=== PATIENT | female | born 1970 | race Caucasian/White ===

== ENCOUNTER 2016-07-12 19:24 | Emergency (ER) | payer BC, OTHER ==
[~2016-07-12] VITALS: Ht 162.6 cm; Wt 101.6 kg
[~2016-07-12 19:24] MED LIST: Z.0.NO CURRENT MEDS
[2016-07-12 19:33] VITALS: BP 128/85; PULSE 84; RESP 18; TEMP 99.1; O2SAT 98
[2016-07-12] MEDS ORDERED: CLIN1CAP6 PO (20:07)
--- NOTE | 2016-07-12 20:16 | PD ---
HPI Chief Complaint: Oral / Dental Pain or Problem Time Seen by Provider: 19:50 Travel History International Travel<30 days: No Contact w/Intl Traveler<30days: No Traveled to known affect area: No History of Present Illness HPI 45-year-old female presents to the emergency room for evaluation of left lower dental pain and swelling. Patient's D she has had dental pain for a long time but has a fear of going to the dentist and has not been able to bring herself to do it. States she woke up this morning with acute worsening of pain and facial swelling. States swelling is causing the left side of her face to feel numb. She has been taking Aleve daily without significant relief in symptoms. She denies fever, chills, nausea, and vomiting. No difficulty eating or breathing. Denies chronic medical conditions or daily medications. PFSH Past Medical History Cancer: No Diabetes: No Diminished Hearing: No Hepatitis: No Hiatal Hernia: No Medical other: Yes (hx of anemia) Thyroid Disease: No ?: Not : 3 Para: 3 Ovarian Cysts: Yes Tubal Ligation: Yes Past Surgical History Abdominal Surgery: Yes (hernia repair tubaligation laparoscopy) Gynecologic Surgery: Yes (OVARY AND OVARIAN CYSTS REMOVED) Other Surgery: Yes (HERNIA REPAIR UMBILICAL) Social History Alcohol Use: No Tobacco Use: No Substance Use: No Allergies-Medications (Allergen,Severity, Reaction): Coded Allergies: Penicillin (Verified Allergy, Severe, HIVES, 07/12/16) Reported Meds & Prescriptions Reported Meds & Active Scripts Active Clindamycin (Clindamycin HCl) 300 Mg Cap 300 Mg PO Q8HR 10 Days Review of Systems Except as stated in HPI: all other systems reviewed are Neg Physical Exam Narrative GENERAL: Well-nourished, well-developed female in no acute distress. Afebrile. Ambulatory. SKIN: Warm and dry. HEAD: Normocephalic. EYES: No scleral icterus. No injection or drainage. DENTAL: Mild decay throughout. Tenderness to palpation to tooth #19 which has an intact filling and new cavity. No surrounding erythema. No submental, some mandibular, or buccal induration. Mild left-sided facial swelling. No loose or chipped teeth. No malocclusion. NECK: Supple, trachea midline. No JVD or lymphadenopathy. CARDIOVASCULAR: Regular rate and rhythm without murmurs, gallops, or rubs. RESPIRATORY: Breath sounds equal bilaterally. No accessory muscle use. No crackles, rales, wheezes, or rhonchi. Data Data Last Documented VS Vital Signs Date Time Temp Pulse Resp B/P Pulse Ox O2 Delivery O2 Flow Rate FiO2 07/12/16 19:33 99.1 84 18 128/85 98 MDM Medical Decision Making Medical Screen Exam Complete: Yes Emergency Medical Condition: Yes Medical Record Reviewed: Yes Differential Diagnosis Dentalgia versus dental abscess versus gingivitis Narrative Course 45-year-old female presents to the emergency room for evaluation of left lower dental pain and swelling for the past day. Patient has had problems with the left lower dental pain for a long period of time but woke up with the swelling acutely this morning. She has been taking NSAIDs without relief in symptoms. She has been unable to see a dentist secondary to anxiety. Physical exam reveals mild to moderate decay throughout. Tenderness to palpation at tooth # 19 with mild associated facial swelling. No evidence of Rd's. Likely early dental abscess. Patient will be treated with clindamycin and told to follow up with her dentist or return for worsening symptoms. She understands and agrees to plan. Diagnosis Primary Impression: Dental abscess Referrals: Dentist Patient Instructions: Dental Abscess (ED), General Instructions Additional Instructions: Rest and drink plenty of fluids. Ibuprofen with food as directed, as needed for pain. Clindamycin as directed, until gone. Follow-up with a dentist. Return to the emergency room for worsening symptoms. Med/Other Pt SpecificInfo: Prescription(s) given Scripts Clindamycin 300 Mg [id number] Mg PO Q8HR 10 Days Ref 0 Prov:Indira Way MD 07/12/16 Disposition: 01 DISCHARGE HOME Condition: Stable Cheri Gonzalez Jul 12, 2016 20:16
== END 2016-07-12 20:22 | disposition home or self-care (01) ==
LOC: PHEFT 19:24
DX: K04.7 Periapical abscess without sinus (principal)
CPT/HCPCS: 99282

== ENCOUNTER 2017-10-21 07:27 | Emergency (ER) | payer OTHER ==
[~2017-10-21] VITALS: Ht 162.6 cm; Wt 106.5 kg
[~2017-10-21 07:27] MED LIST changes: +CLIN300C5 PO; -Z.0.NO CURRENT MEDS
[2017-10-21 07:36] VITALS: BP 143/77; PULSE 104; RESP 16; TEMP 97.8; O2SAT 99
[2017-10-21] MEDS ORDERED: GERD MED (07:45)
[2017-10-21] MEDS ORDERED: IBUP1TAB7 PO (07:45)
--- NOTE | 2017-10-21 07:58 | PD ---
HPI Chief Complaint: Musculoskeletal Complaint Time Seen by Provider: 07:47 Travel History International Travel<30 days: No Contact w/Intl Traveler<30days: No Traveled to known affect area: No History of Present Illness HPI This 47-year-old female says she had a sudden onset of pain behind her right lower leg around 2:00 this morning. The pain is quite severe. She is able to walk but the pain is aggravated by walking and by certain movements. There is been no fever or chills. There is no history of trauma. She has no history of blood clot. She has a history of arthritis in her knees and for which he takes Aleve or ibuprofen. Has not been any fever or chills PFSH Past Medical History Cancer: No Cardiovascular Problems: No Diabetes: No Diminished Hearing: No Hepatitis: No Hiatal Hernia: No Hypertension: No Medical other: Yes (hx of anemia) Respiratory: No Thyroid Disease: No Tetanus Vaccination: Unknown ?: Not LMP: 2 weeks ago : 3 Para: 3 Ovarian Cysts: Yes Tubal Ligation: Yes Past Surgical History Abdominal Surgery: Yes (hernia repair tubaligation laparoscopy) Gynecologic Surgery: Yes (OVARY AND OVARIAN CYSTS REMOVED) Other Surgery: Yes (HERNIA REPAIR UMBILICAL) Social History Alcohol Use: No Tobacco Use: No Substance Use: No Allergies-Medications (Allergen,Severity, Reaction): Coded Allergies: penicillin G (Unverified Allergy, Severe, HIVES, 10/21/17) Reported Meds & Prescriptions Reported Meds & Active Scripts Active Reported [Gerd Med] Ibuprofen 800 Mg Tab 800 Mg PO BID PRN Review of Systems Except as stated in HPI: all other systems reviewed are Neg General / Constitutional: No: Fever Eyes: No: Diploplia HENT: No: Headaches, Vertigo Cardiovascular: No: Chest Pain or Discomfort, Palpitations Respiratory: No: Cough, Shortness of Breath Gastrointestinal: No: Nausea, Vomiting Genitourinary: No: Urgency, Frequency Musculoskeletal: Positive: Arthralgias, Pain Skin: No Rash, No Itching Neurologic: No: Weakness, Dizziness Endocrine: No: Heat Intolerance, Cold Intolerance Hematologic/Lymphatic: No: Easy Bruising Physical Exam Narrative GENERAL: Well-developed female SKIN: Focused skin assessment warm/dry. HEAD: Atraumatic. Normocephalic. EYES: Pupils equal and round. No scleral icterus. No injection or drainage. ENT: No nasal bleeding or discharge. Mucous membranes pink and moist. NECK: Trachea midline. No JVD. . MUSCULOSKELETAL: No obvious deformities. No clubbing. No cyanosis. No edema. She has varicose veins on the right lower leg. The right calf is tender to palpation. It is not warm. There is no erythema. NEUROLOGICAL: Awake and alert. No obvious cranial nerve deficits. Motor grossly within normal limits. Normal speech. PSYCHIATRIC: Appropriate mood and affect; insight and judgment normal. Data Data Last Documented VS Vital Signs Date Time Temp Pulse Resp B/P (MAP) Pulse Ox O2 Delivery O2 Flow Rate FiO2 10/21/17 07:42 16 10/21/17 07:36 97.8 104 143/77 (99) 99 Orders Orders Complete Blood Count With Diff (10/21/17 07:56) Basic Metabolic Panel (Bmp) (10/21/17 07:56) Prothrombin Time / Inr (Pt) (10/21/17 07:56) Act Partial Throm Time (Ptt) (10/21/17 07:56) Us Leg Venous Doppler (10/21/17 07:56) Acetaminophen (Tylenol) (10/21/17 08:15) Labs Laboratory Tests Test 10/21/17 08:00 White Blood Count 12.2 TH/MM3 Red Blood Count 5.08 MIL/MM3 Hemoglobin 10.8 GM/DL Hematocrit 34.6 % Mean Corpuscular Volume 68.0 FL Mean Corpuscular Hemoglobin 21.2 PG Mean Corpuscular Hemoglobin Concent 31.2 % Red Cell Distribution Width 16.5 % Platelet Count 213 TH/MM3 Mean Platelet Volume 8.6 FL CBC Comment AUTO DIFF Differential Total Cells Counted 100 Neutrophils % (Manual) 83 % Band Neutrophils % 2 % Lymphocytes % 7 % Monocytes % 8 % Neutrophils # (Manual) 10.4 TH/MM3 Differential Comment FINAL DIFF MANUAL Platelet Estimate NORMAL Platelet Morphology Comment NORMAL Prothrombin Time 10.0 SEC Prothromb Time International Ratio 1.0 RATIO Activated Partial Thromboplast Time 23.6 SEC Blood Urea Nitrogen 7 MG/DL Creatinine 0.56 MG/DL Random Glucose 94 MG/DL Calcium Level 8.8 MG/DL Sodium Level 137 MEQ/L Potassium Level 3.9 MEQ/L Chloride Level 105 MEQ/L Carbon Dioxide Level 24.0 MEQ/L Anion Gap 8 MEQ/L Estimat Glomerular Filtration Rate 116 ML/MIN [facility] Medical Decision Making Medical Screen Exam Complete: Yes Emergency Medical Condition: Yes Medical Record Reviewed: Yes Differential Diagnosis Differential includes musculoskeletal pain, VT, superficial phlebitis Narrative Course Ultrasound is negative for DVT. Patient will be released with recommendations for ibuprofen or Tylenol for pain Diagnosis Primary Impression: Musculoskeletal pain Additional Instructions: Take ibuprofen or Tylenol for pain, Disposition: 01 DISCHARGE HOME Condition: Stable Xander Cagle MD October 21, 2017 07:58
[2017-10-21] MEDS ORDERED: ACETAMINOPHEN 500 MG CPLT PO ONE (08:15)
[2017-10-21 08:26] LABS: HEMATOCRIT 34.6 % (35.0-46.0); HEMOGLOBIN 10.8 GM/DL (11.6-15.3); MEAN CORPUSCULAR HEMOGLOBIN 21.2 PG (27.0-34.0); MEAN CORPUSCULAR HGB CONC 31.2 % (32.0-36.0); MEAN PLATELET VOLUME 8.6 FL (7.0-11.0); PLATELET COUNT 213 TH/MM3 (150-450); RED BLOOD COUNT 5.08 MIL/MM3 (4.00-5.30); RED CELL DISTRIBUTION WIDTH 16.5 % (11.6-17.2); WHITE BLOOD COUNT 12.2 TH/MM3 (4.0-11.0)
[2017-10-21 08:34] LABS: CALCIUM 8.8 MG/DL (8.5-10.1)
[2017-10-21 08:38] LABS: CREATININE 0.56 MG/DL (0.50-1.00)
[2017-10-21 08:50] LABS: BANDS 2 % (0-6); LYMPHOCYTES 7 % (9-44); MONOCYTES 8 % (0-8); NEUTROPHIL # MANUAL DIFF 10.4 TH/MM3 (1.8-7.7); POLYS (SEG NEUTROPHILS) 83 % (16-70)
--- NOTE | 2017-10-21 08:51 | RADRPT ---
EXAM DATE/TIME: 10/21/2017 08:19 [facility] COMPARISON: No previous studies available for comparison. INDICATIONS : Right lower leg pain. MEDICAL HISTORY : Umbilical hernia. Ovarian cysts. SURGICAL HISTORY : Tubal ligation. Hernia repair. ENCOUNTER: Initial ACUITY: 1 day PAIN SCORE: 8/10 LOCATION: Right leg. TECHNIQUE: Venous ultrasound of the leg was performed from the inguinal ligament to the proximal calf. Real-sowmya e, color Doppler and spectral tracing, compression and augmentation techniques were used. FINDINGS: There is normal compressibility of the deep venous system from the inguinal region to the proximal ca lf. No echogenic clot is seen in the lumen of the common femoral, femoral, popliteal, and posterior tibial veins. There is a normal response of the venous system to proximal and distal augmentation an d respiration. CONCLUSION: Negative for deep venous thrombosis. . Golden Valladares MD FACR on October 21, 2017 at 8:47 Board Certified Radiologist. This report was verified electronically.
== END 2017-10-21 09:58 | disposition home or self-care (01) ==
LOC: PHED 07:27
DX: M79.661 Pain in right lower leg (principal); M17.9 Osteoarthritis of knee, unspecified; D64.9 Anemia, unspecified; Z88.0 Allergy status to penicillin
CPT/HCPCS: 80048; 85007; 85027; 85610; 85730; 93971; 99284